=== PATIENT | female | born 2000 | race American Indian/Alaskan Native ===

== ENCOUNTER 2020-09-30 08:03 | Emergency (ER) | payer SELFPAY ==
[2020-09-30 08:08] VITALS: BP 123/88
--- NOTE | 2020-09-30 08:16 | Emergency Department Report ---
Chief Complaint: Dental/Oral Stated Complaint: MOUTH PAIN Time Seen by Provider: 09/30/20 08:13 - HPI History of Present Illness: Patient is a 20-year-old female presents emergency room complaints of right lower dental pain for a month. She states that she last saw a dentist approximately 3 to 4 months ago and was advised that she has a wisdom tooth that needs to be removed. She has not followed back up with a dentist or seen an oral surgeon. She denies any fever, facial swelling, nausea, vomiting, diarrhea, difficulty swallowing, difficulty breathing. No past medical history. No allergies medications. Last menstrual cycle 09/04/2020. Vitals are normal On exam: Non toxic appearing, no acute distress atraumatic, normocephalic normal appearance of the eyes, EOMI, no periorbital edema or ecchymosis moist mucus membranes, there are impacted wisdom teeth present to the right lower and left lower region, no induration, no facial edema, uvula is midline, no uvular edema or deviation, no trismus, no tongue elevation, no muffled voice No respiratory distress, no accessory muscle use A&O x4, no focal neuro deficit Examination appears consistent with impacted wisdom teeth There are no signs of dental abscess, infected dental caries, facial cellulitis, facial abscess, Pardeep's at this time Discussed supportive care and symptomatic treatment patient Advised patient that she will need to see an oral surgeon for wisdom teeth extraction Discussed the importance of follow-up, she verbalized understanding Discussed strict return precautions with patient in detail and signs of infection Medical screening examination performed and there is no threat to life at this time - Exam Vital Signs: Vital Signs 09/30/20 08:07 Temperature 99.0 F Pulse Rate 81 Respiratory 18 Rate Blood Pressure 123/88 O2 Sat by Pulse 100 Oximetry MSE screening note: Focused history and physical exam performed. Due to findings the following was ordered: ED Disposition for MSE Clinical Impression: Dentalgia Disposition: Z- MED SCREENING EXAM-LEFT Is pt being admited?: No Does the pt Need Aspirin: No Condition: Stable Additional Instructions: May alternate Tylenol and then ibuprofen every 6-8 hours as needed for pain. Gargle with warm salt water. May use Orajel [id number]. You need to follow-up with a oral surgeon to have your wisdom teeth extracted. It is very important that you follow-up. Return to emergency room for any new or worsening symptoms or any signs of infection. Referrals: an, oral surgeon [Other] - 2-3 Days Time of Disposition: 08:15 Print Language: ROMANIAN
== END 2020-09-30 08:35 | disposition left against medical advice (07) ==
LOC: ED 08:03
DX: K08.89 Other specified disorders of teeth and supporting structures (principal); Z53.21 Procedure and treatment not carried out due to patient leaving prior to being seen by health care provider